=== PATIENT | male | born 1995 | race Hispanic/Latino ===

== ENCOUNTER 2024-02-29 17:13 | Emergency (ER) | payer OTHER, SELFPAY ==
[2024-02-29 19:13] LABS: Barbiturates NEGATIVE (NEGATIVE); Benzodiazepines POSITIVE (NEGATIVE); Cocaine POSITIVE (NEGATIVE); METHAMPHETAM NEGATIVE (NEGATIVE); Methadone NEGATIVE (NEGATIVE); Opiates POSITIVE (NEGATIVE); Phencyclidine NEGATIVE (NEGATIVE); THC Cannibis POSITIVE (NEGATIVE)
--- NOTE | 2024-02-29 19:19 | ER ---
Nurse's Notes [facility] Name: Cj Franz Age: 29 yrs Sex: Male : 1995 Arrival Date: 02/29/2024 Time: 17:13 Bed 17 Private MD: Diagnosis: Anxiety disorder, unspecified Presentation: 02/28 17:19 Chief complaint: Patient states: my anxiety is out of control. I am pretty sure it is tm6 from all of the drugs I've done. I've had problems with anxiety for the last 2 years, and the last 6 months it has been crippling. I took some xanax that my aunt has, about 2pm. Left Knee pain x6 months. Coronavirus screen: Client denies travel out of the [place] in the last 14 days. Ebola Screen: Patient negative for fever greater than or equal to 101.5 degrees Fahrenheit, and additional compatible Ebola Virus Disease symptoms Patient denies exposure to infectious person. Patient denies travel to an Ebola-affected area in the 21 days before illness onset. No symptoms or risks identified at this time. Initial Sepsis Screen: Does the patient meet any 2 criteria? RR > 20 per min. Does the patient have a suspected source of infection? No. Patient's initial sepsis screen is negative. Risk Assessment: Do you want to hurt yourself or someone else? Patient reports no desire to harm self or others. Onset of symptoms is unknown. 17:19 Method Of Arrival: Ambulatory tm6 17:19 Acuity: ELIJAH 3 tm6 Triage Assessment: 17:22 General: Appears uncomfortable, Behavior is cooperative, anxious. Pain: Complains of tm6 pain in left knee. EENT: No signs and/or symptoms were reported regarding the EENT system. Neuro: Level of Consciousness is awake, alert, obeys commands, Oriented to person, place, time, situation. Cardiovascular: Patient's skin is warm and dry. Respiratory: Airway is patent Respiratory effort is even, unlabored, Respiratory pattern is regular, symmetrical. GI: No signs and/or symptoms were reported involving the gastrointestinal system. Abdomen is flat, non-distended. : No signs and/or symptoms were reported regarding the genitourinary system. Derm: No signs and/or symptoms reported regarding the dermatologic system. Musculoskeletal: Reports pain in left knee. Historical: - Allergies: 17:22 No Known Allergies; tm6 - PMHx: 17:22 None; tm6 - PSHx: 17:22 None; tm6 - Immunization history:: Client reports having NOT received the Covid vaccine. - Infectious Disease History:: Denies. - Social history:: Smoking status: Patient reports the use of cigarette tobacco products, smokes one-half pack cigarettes per day, Patient uses alcohol, weekly. street drugs, cocaine, marijuana. Screenin:34 [facility] ED Fall Risk Assessment (Adult) History of falling in the last 3 months, tm6 including since admission No falls in past 3 months (0 pts) Confusion or Disorientation No (0 pts) Intoxicated or Sedated No (0 pts) Impaired Gait No (0 pts) Mobility Assist Device Used No (0 pt) Altered Elimination No (0 pt) Score/Fall Risk Level 0 - 2 = Low Risk Oriented to surroundings, Maintained a safe environment, Educated pt \T\ family on fall prevention, incl call for assistance when getting out of bed. Abuse screen: Denies threats or abuse. Denies injuries from another. Nutritional screening: No deficits noted. Tuberculosis screening: No symptoms or risk factors identified. Assessment: 18:14 General: Appears uncomfortable, Behavior is anxious, crying. Pain: Denies pain. Neuro: mb9 Regalado Agitation-Sedation Scale (RASS): 0 - Alert and Calm Level of Consciousness is awake, alert, obeys commands, Oriented to person, place, time, situation, Appropriate for age. Cardiovascular: Patient's skin is warm and dry. Respiratory: Airway is patent Respiratory effort is even, unlabored. GI: No signs and/or symptoms were reported involving the gastrointestinal system. : No signs and/or symptoms were reported regarding the genitourinary system. EENT: No signs and/or symptoms were reported regarding the EENT system. Derm: Skin is pink, warm \T\ dry. Musculoskeletal: Range of motion: intact in all extremities. 19:09 General: Appears in no apparent distress. comfortable, Behavior is calm, cooperative. mb9 Neuro: Vital Signs: 17:19 BP 124 / 99; Pulse 95; Resp 22; Temp 98.3(O); Pulse Ox 100% on R/A; MAP 109 mmHg; tm6 Weight 80.74 kg; Height 6 ft. 2 in. ; Pain 5/10; 18:55 BP 140 / 74; Pulse 112; Resp 16; Pulse Ox 100% on R/A; mb9 17:19 Body Mass Index 22.85 (80.74 kg, 187.96 cm) tm6 17:19 Pain Scale: Adult tm6 ED Course: 17:15 Patient arrived in ED. mg5 17:15 Mary Phelps PA-C is PHCP. sb4 17:15 Brad Vasquez MD is Attending Physician. sb4 17:22 Triage completed. tm6 17:22 Arm band placed on right wrist. tm6 17:33 Renea Yates, RN is Primary Nurse. mb9 17:34 Patient has correct armband on for positive identification. Bed in low position. Call tm6 light in reach. Side rails up X 1. Provided Education on: use of call neri. 17:50 No provider procedures requiring assistance completed. mb9 18:41 Patient requests food. Patient requests liquids. mb9 18:41 UDS Sent. mb9 18:41 Urine collected: clean catch specimen, ava colored. mb9 19:13 Report given to ALFREDO Mena. mb9 19:17 Ángel Siddiqui MD is Referral Physician. sb4 Administered Medications: No medications were administered Medication: 17:50 VIS not applicable for this client. mb9 Outcome: 19:18 Discharge ordered by . sb4 19:43 Patient left the ED. jb4 Signatures: Ashok Lopez RN RN jb4 Mary Phelps PA-C PA-C sb4 Renea Yates, RN RN mb9 Aida Singh mg5 Jodi Branham RN RN tm6
--- NOTE | 2024-02-29 19:19 | EDPHYS ---
Physician Documentation [facility] Name: Cj Franz Age: 29 yrs Sex: Male : 1995 Arrival Date: 02/29/2024 Time: 17:13 Bed 17 Private MD: ED Physician Brad Vasquez HPI: 02/28 19:28 This 29 yrs old Male presents to ER via Ambulatory with complaints of Anxiety. sb4 19:28 Patient states that he has been dealing with anxiety on and off for several years now. sb4 He states that he is been prescribed several different medications but nothing seems to help him. He states that most recently, he was on Klonopin which did seem to help but his health insurance so he has not been able to refill it. He states that he took his and his Xanax today which helped him. He states that because he does not have health insurance, he abuses recreational drugs to help with his anxiety. He denies any thoughts of hurting himself or others. Historical: - Allergies: 17:22 No Known Allergies; tm6 - PMHx: 17:22 None; tm6 - PSHx: 17:22 None; tm6 - Immunization history:: Client reports having NOT received the Covid vaccine. - Infectious Disease History:: Denies. - Social history:: Smoking status: Patient reports the use of cigarette tobacco products, smokes one-half pack cigarettes per day, Patient uses alcohol, weekly. street drugs, cocaine, marijuana. ROS: 19:28 Constitutional: Negative for fever, chills, and weight loss, sb4 19:28 Psych: Positive for anxiety, drug dependence, 19:28 All other systems are negative, Exam: 19:28 Constitutional: This is a well developed, well nourished patient who is awake, alert, sb4 and in no acute distress. Head/Face: Normocephalic, atraumatic. Eyes: Extra-ocular motions intact. Periorbital areas with no swelling, redness, or edema. ENT: Mucous membranes moist. Skin: Warm, dry with normal turgor. Normal color with no rashes, no lesions, and no evidence of cellulitis. 19:28 Psych: Behavior/mood is anxious, Affect is calm, Oriented to person, place, time, Patient has no thoughts/intents to harm self or others. Judgement / Insight is normal. Memory is normal. Delusions/hallucinations are not present. Vital Signs: 17:19 BP 124 / 99; Pulse 95; Resp 22; Temp 98.3(O); Pulse Ox 100% on R/A; MAP 109 mmHg; tm6 Weight 80.74 kg; Height 6 ft. 2 in. ; Pain 5/10; 18:55 BP 140 / 74; Pulse 112; Resp 16; Pulse Ox 100% on R/A; mb9 17:19 Body Mass Index 22.85 (80.74 kg, 187.96 cm) tm6 17:19 Pain Scale: Adult tm6 MDM: 17:15 Patient medically screened. sb4 19:30 Data reviewed: vital signs, nurses notes, lab test result(s), and as a result, I will sb4 discharge patient. Counseling: I had a detailed discussion with the patient and/or guardian regarding the historical points, exam findings, and any diagnostic results supporting the discharge/admit diagnosis, lab results, the need for outpatient follow up, a psychiatrist, to return to the emergency department if symptoms worsen or persist or if there are any questions or concerns that arise at home. ED course: Discussed at length with patient his history and ways to move forward to manage his anxiety. Advised discontinuation of drugs as this can worsen anxiety. Recommended following up with [facility] as they are available for uninsured patients for counseling specifically as it seems medications are not working for him. Advised to not take any medications that are not prescribed to him. Additionally, I provided a list of community resources. Advised to return for any thoughts of harming himself or others. 02/28 18:36 Order name: DLEILAH; Complete Time: 19:15 sb4 Administered Medications: No medications were administered Disposition Summary: 02/29/24 19:18 Discharge Ordered Notes: Location: Home sb4 Problem: an ongoing problem sb4 Symptoms: are unchanged sb4 Condition: Stable sb4 Diagnosis - Anxiety disorder, unspecified sb4 Followup: sb4 - With: Ángel Siddiqui MD - When: 2 - 3 days - Reason: Recheck today's complaints, Re-evaluation by your physician Discharge Instructions: - Discharge Summary Sheet sb4 - Managing Depression, Adult sb4 - Illegal Drug Use Information, Adult sb4 - Managing Anxiety, Adult sb4 Forms: - Patient Portal Instructions sb4 - Leadership Thank You Letter sb4 Addendum: 03/04/2024 11:36 Co-signature as Attending Physician, Brad Vasquez MD I reviewed the patient's care r t provided by the Advanced Practice Provider and agree with the diagnosis and treatment plan. Signatures: Dispatcher [employer] Mary Black, JOÃOC HASMUKH sb4 Brad Vasquez MD MD rt Masterson, Tawney RN RN tm6
[2024-02-29 23:31] VITALS: TEMP 98.3; O2SAT 100
[2024-02-29 23:32] VITALS: BP 140/74
== END 2024-02-29 19:43 | disposition home or self-care (01) ==
LOC: ER 17:13
DX: F41.9 Anxiety disorder, unspecified (principal); F17.210 Nicotine dependence, cigarettes, uncomplicated; Z28.310 Unvaccinated for COVID-19
CPT/HCPCS: 80307; 99282